=== PATIENT | female | born 1965 | race Hispanic/Latino ===

== ENCOUNTER 2024-09-18 11:26 | Emergency (ER) | payer SELFPAY ==
[2024-09-18] MEDS ORDERED: Acetaminophen 500 MG TAB ONE (12:10)
[2024-09-18] MEDS ORDERED: Meclizine HCl 25 MG TAB ONE (12:11)
[2024-09-18] MEDS ORDERED: Ondansetron PF 4 MG/2 ML Vial ONE (12:14)
[2024-09-18 12:18] LABS: #Basophils 0.05 10x3/uL (0.0-0.2); %Basophils 0.8 % (0.0-1.0); %Eosinophils 5.1 % (0.0-10.0); %Lymphocytes 33.9 % (21.0-51.0); %Monocytes 6.8 % (0.0-10.0); %Neutrophils 53.2 % (42.0-75.0); Hematocrit 37.4 % (36.0-47.0); Hemoglobin 12.6 g/dL (12.0-16.0); Mean Corpuscular HGB CONC 33.7 g/dL (32.0-36.0); Mean Corpuscular Hemoglobin 28.4 pg (27.0-31.0); Mean Corpuscular Volume 84.4 fL (78.0-98.0); Mean Platelet Volume 8.8 fL (7.4-10.4); Platelet Count 421 10x3/uL (130-400); RBC Distribution Width 13.3 % (11.5-14.5); Red Blood Cell (RBC) Count 4.43 mill/uL (4.20-5.40)
[2024-09-18 12:20] LABS: Actual Bicarbonate (HCO3v) 25.7 mEq/L (22-28); Analyzer IN Cardio ER; Base Excess 0.7 mEq/L (-2.0 to +3.0); Calcium, Ionized (venous) 1.13 mmol/L (1.16-1.32); Chloride (VBG) 103 mmol/L (98-106); Hematocrit-VBG 41 % (36.0-47.0); Hemoglobin (Hb) 13.8 g/dL (11.7-16.0); Sodium 140 mmol/L (133-146); pH (venous) 7.398 (7.32-7.43)
[2024-09-18 12:33] LABS: INR-International Normal Ratio 1.1; Prothrombin Time 13.8 sec (12.0-14.7)
[2024-09-18 12:34] LABS: PTT 32.2 sec (22.9-36.1)
[2024-09-18 12:37] LABS: D-Dimer Test Less than 0.27 mcg/mL (0.27-0.43)
[2024-09-18 12:51] LABS: ALT (SGPT) 44 U/L (Less than 34); AST (SGOT) 39 U/L (11-34); Albumin 3.9 g/dL (3.1-4.5); Alkaline Phosphatase 102 U/L (40-110); Anion Gap 11 mmol/L (10-20); BUN (Urea Nitrogen) 14 mg/dL (9.8-20.1); Bilirubin, Total 0.4 mg/dL (0.3-1.2); Calc. Creatinine Clearance 0 mL/min (70-130); Calcium 8.6 mg/dL (7.8-10.44); Carbon Dioxide 24 mmol/L (22-29); Chloride 108 mmol/L (98-107); Estimated GFR 106; Globulin 3.4 g/dL (2.4-3.5); Glucose 121 mg/dL (70-105); Lipase 31 U/L (8-78); Potassium 3.3 mmol/L (3.5-5.1); Protein, Total 7.3 g/dL (6.0-8.3); Sodium 140 mmol/L (136-145)
[2024-09-18 12:55] LABS: Troponin I Less than 0.010 ng/mL (< 0.028)
[2024-09-18] MEDS ORDERED: fentaNYL 50 mcg/mL 1 mL Vial ONE (13:29)
[2024-09-18] MEDS ORDERED: Potassium Bicarbonate/Cit Ac 20 MEQ TAB ONE (14:32)
[2024-09-18] MEDS ORDERED: Potassium Chloride 20 MEQ TAB ONE (14:35)
== END 2024-09-18 16:10 | disposition home or self-care (01) ==
LOC: ERS 11:26
DX: R55 Syncope and collapse (principal); E16.2 Hypoglycemia, unspecified; R42 Dizziness and giddiness; R74.01 Elevation of levels of liver transaminase levels; R29.700 NIHSS score 0; R11.0 Nausea; Z75.8 Other problems related to medical facilities and other health care
CPT/HCPCS: 36415; 70450; 71045; 72125; 80053; 82805; 83690; 84484; 85025; 85379; 85610; 85730; 93005; 94760; 96361; 96374; 96375; J2405; J3010